=== PATIENT | female | born 1985 | race Caucasian/White ===

== ENCOUNTER 2018-09-05 23:12 | Inpatient (IN) | payer BC ==
[2018-09-06 00:44] LABS: Hematocrit 35 % (35-47); Hemoglobin 11.8 g/dL (12.0-16.0); Mean Corpuscular HGB Conc 34 g/dL (31-36); Mean Corpuscular Hemoglobin 30 pg (27-31); Mean Corpuscular Volume 88 fL (80-97); Mean Platelet Volume 8.5 fL (7.4-10.4); Platelet Count 321 10^3/uL (150-450); Red Blood Count 3.96 10^6 /uL (3.70-4.87); Red Cell Distribution Width 14 % (10.5-15); White Blood Count 15.8 10^3/uL (3.5-10.8)
[2018-09-06 01:16] LABS: ABS Basophils 0.1 10^3/ul (0-0.2); ABS Eosinophils 0.1 10^3/ul (0-0.6); ABS Lymphocytes 3.2 10^3/ul (1.0-4.8); ABS Monocytes 1.4 10^3/ul (0-0.8); ABS Neutrophils 10.9 10^3/ul (1.5-7.7); Eosinophil % 0.8 %; Lymphocyte % 20.4 %
[2018-09-06] MEDS ORDERED: Lactated Ringers 1000 ML Bag* 1,000 ML IV ONE (01:30)
[2018-09-06] MEDS ORDERED: Buffered Lidocaine 1% SYRIN* 1 ML/SYRINGE INTRADERM ONE (01:30)
[2018-09-06] MEDS ORDERED: Azithromycin TAB* 250 MG PO ONE (01:33)
--- NOTE | 2018-09-06 01:42 | HP ---
General Information - Reason for Visit Pt presents with a few gushes of clear fluid this evening. Other than a little back pain, no issues. Pt with di/di twin gestation, otherwise uncomplicated to date. U/S in office on 08/30 showed normal, concordant growth. Vtx/breech. - General Information Maternal Age: 33 Grav: 2 Para: 0 IEA: 1 Estimated Due Date: 10/31/18 Determined By: LMP Gestational Age in Weeks/Days: 32+1 wks Maternal Blood Type and Rh: O Positive - Results this Serology/RPR Result: Non-Reactive Rubella Result: Immune HBsAg Result: Negative HIV Result: Negative Past Medical History Delivery History: See Records Pertinent Past Medical History: Non-Contributory - h/o migraine GREGORY Pertinent Past Surgical History: See Records - laparoscopy with extensive lysis of adhesions - Antepartal Records Antepartal Records: Reviewed, Complicated by: - di/di twins Review of Systems Constitutional: Comfortable CV Complaint: No Respiratory: Shortness of Breath: No Gastrointestinal: No Nausea/Vomiting, Normal Bowel Movement Genitourinary: Leaking Fluid, No Dysuria, No Bleeding Musculoskeletal: No Complaint Neurological: No Headache Movement: Normal - x2 Exam Allergies/Adverse Reactions: Allergies Penicillins Allergy (Severe, Verified 09/05/18 23:57) Hives/Diff.Breathing/Itching VS normal, afebrile Lab Values - Entire Visit: Laboratory Tests 09/05/18 09/06/18 09/06/18 23:45 00:27 00:27 WBC 15.8 H RBC 3.96 Hgb 11.8 L Hct 35 MCV 88 MCH 30 MCHC 34 RDW 14 Plt Count 321 MPV 8.5 Neut % (Auto) 69.3 Lymph % (Auto) 20.4 [place] % (Auto) 8.9 Eos % (Auto) 0.8 Baso % (Auto) 0.6 Absolute Neuts (auto) 10.9 H Absolute Lymphs (auto) 3.2 Absolute Monos (auto) 1.4 H Absolute Eos (auto) 0.1 Absolute Basos (auto) 0.1 Absolute Nucleated RBC 0.0 Nucleated RBC % 0.0 Vag Amniotic Fld Detect Positive Blood Type O Positive Antibody Screen Negative - Measurements Height: 5 ft 6 in Weight: 218 lb 4.122 oz Weight in lbs: [phone] Body Mass Index (BMI): 35.2 Pre- Weight: 200 lb Weight Gained This : -90.389 lbs and -0.008 ozs - Exam Breast: Breast Exam Deferred Extremities: No Edema Heart: Normal Rhythm/Heart Sounds HEENT: No Significant Findings Lungs: Clear Bilaterally Rectal: Rectal Exam Deferred - Abdominal Exam Abdomen Exam: Non-Tender, Fundal Height Consistent with Dates - for twins - Ultrasound/Biophysical Profile Ultrasound Status: Bedside Exam Ultrasound Findings: vertex/breech. Normal FHR x2, fluid appears low in A, normal in B Targeted Exam Findings Presenting Part: Vertex - /Breech Membrane Status: Leaking Amniotic Fluid Evaluation: Positive ROM Plus EFM Findings - External Monitor Findings Baseline Heart Rate: 140 - 150 External Monitor Findings: Accelerations Present, No Pattern of Variable or Late Decelerations, Variability Moderate, Baseline Stable Contractions: Irregular Contraction Frequency: rare Assessment/Plan - Assessment 32+1 wks with di/di twins and PPROM, no evidence of significant labor or infection. Long discussion regarding mgmt including betamethasone and abx to prolong latency. GBS culture sent. We also discussed delivery plans since she had not discussed previously. Pt strongly desires a vaginal delivery, although she may choose to have a section rather than risk having both an and C/S. She understands that there is no way for us to ensure she will not require a C/ S even if she does delivery baby A. We will continue to discuss further. - Obstetrical Risk Factors Obstetrical Risk Factors: GBS Unknown, Risk Factors Comment: twins, PPROM - Plan Plan: Antibiotic Prophylaxis, Steroids Plan Comment: Admit until delivery. Plan to monitor babies Q shift. Delivery if signs of labor, infection, or concerns - Date/Time of Admission Date of Admission: 09/06/18 Time of Admission: 00:30
[2018-09-06] MEDS: ceFAZolin 1 GM ADVAN(*) 1 GM in NS 0.9% 50 ML* 50 ML IVPB SCH ×3 (02:53→18:45)
[2018-09-06] MEDS: Betamethasone INJ* 6 MG/ML 5 ML VIAL (30 MG) IM SCH (02:53)
--- NOTE | 2018-09-06 12:55 | PN ---
Progress Note - Progress Note Date of Service: 09/06/18 Note: 33 yo at 32 weeks with pprom and twins . discussed management. explained managemant of delivery willbe at discretion of MD electronics lead and that there are isssues as babies become more praemature with safety of vaginal . no fever . gfm. abdomen soft nontender no evidence of chorioamnionitis
[2018-09-07] MEDS: ceFAZolin 1 GM ADVAN(*) 1 GM in NS 0.9% 50 ML* 50 ML IVPB SCH ×3 (02:34→19:17)
[2018-09-07] MEDS: Betamethasone INJ* 6 MG/ML 5 ML VIAL (30 MG) IM SCH (02:38)
--- NOTE | 2018-09-07 10:01 | PN ---
Progress Note - Progress Note Date of Service: 09/07/18 SOAP: Subjective: [Twin at 32+ weeks with PPROM. Patient denies abdominal pain/ contractions, no vaginal bleeding.] Objective: [ Vital Signs Temp Pulse Resp BP Pulse Ox 98.9 F 83 16 124/71 99 09/07/18 03:05 09/07/18 03:05 09/07/18 03:05 09/07/18 03:05 09/06/18 08:00 NST Reactive] Assessment: Twin IUP PPROM at 32+ weeks EGA, no obvious s/sx of PTL or infectiojn] Plan: [Continue current care.]
[2018-09-08] MEDS: ceFAZolin 1 GM ADVAN(*) 1 GM in NS 0.9% 50 ML* 50 ML IVPB SCH (02:42)
[2018-09-08] MEDS: Prenatal Vitamin TAB PO SCH (10:17)
[2018-09-08] MEDS: Lactobacillus Acidophilus* 1 TAB PO SCH (10:17)
[2018-09-08] MEDS: Cephalexin CAP* 500 MG PO SCH ×3 (12:48→21:37)
--- NOTE | 2018-09-08 12:56 | PN ---
Progress Note - Progress Note Date of Service: 09/08/18 SOAP: Subjective: [Patient with a twin at 32+ weeks EGA with PPROM, admits to intermittent abdominal tightness and denies vaginal bleeding or abdominal pain.] Objective: [ Vital Signs Temp Pulse Resp BP Pulse Ox 98 F 76 18 131/78 99 09/08/18 08:12 09/08/18 08:12 09/08/18 08:12 09/08/18 08:12 09/06/18 08:00 NST this am Recative for baby A and B only 1 contraction noted over an hour period. Abdomen sof , NT, Gravid with palpable movement. ] Assessment: [Twin with PPROM at 32+ weeks with no obvious s/sx of infection, not in PTL, stable.] Plan: [Continue current care, Deliver for pertinent obstetrical indications.]
[2018-09-09] MEDS: Prenatal Vitamin TAB PO SCH (09:10)
[2018-09-09] MEDS: Lactobacillus Acidophilus* 1 TAB PO SCH (09:10)
[2018-09-09] MEDS: Cephalexin CAP* 500 MG PO SCH ×4 (09:10→20:59)
--- NOTE | 2018-09-09 14:03 | PN ---
Progress Note - Progress Note Date of Service: 09/09/18 Note: S : Pt twin gestation 32 weeks with Pprom O : VSS Afeb uterus: nontender no contractions abdomen: soft non tender Ext : nt A/P Pt 33 yo with twin gestation di/di with prom/ 32 weeks. Pt converted to oral abx today and will check CBC and US today. Plan on delivery by section at 34 weeks.
[2018-09-09 19:07] LABS: Hematocrit 34 % (35-47); Hemoglobin 11.7 g/dL (12.0-16.0); Mean Corpuscular HGB Conc 34 g/dL (31-36); Mean Corpuscular Hemoglobin 30 pg (27-31); Mean Corpuscular Volume 88 fL (80-97); Mean Platelet Volume 8.8 fL (7.4-10.4); Platelet Count 383 10^3/uL (150-450); Red Blood Count 3.92 10^6 /uL (3.70-4.87); Red Cell Distribution Width 13 % (10.5-15); White Blood Count 14.2 10^3/uL (3.5-10.8)
[2018-09-09 19:55] LABS: ABS Eosinophils 0.1 10^3/ul (0-0.6); ABS Lymphocytes 3.2 10^3/ul (1.0-4.8); ABS Monocytes 1.2 10^3/ul (0-0.8); ABS Neutrophils 9.5 10^3/ul (1.5-7.7); Eosinophil % 0.8 %; Nucleated Red Blood Cells % 0.1
[2018-09-10] MEDS: Prenatal Vitamin TAB PO SCH (08:04)
[2018-09-10] MEDS: Cephalexin CAP* 500 MG PO SCH ×4 (08:04→21:27)
[2018-09-10] MEDS: Lactobacillus Acidophilus* 1 TAB PO SCH (08:04)
--- NOTE | 2018-09-10 10:18 | PN ---
Progress Note - Progress Note Date of Service: 09/10/18 SOAP: Subjective: [Patient with twin at 32+weeks EGA and PPROM. She hasd no complaints denies abd pain/contractions or vaginal bleeding.] Objective: [ Vital Signs Temp Pulse Resp BP Pulse Ox 98.4 F 70 18 133/66 99 09/10/18 08:05 09/10/18 08:05 09/10/18 08:05 09/10/18 08:05 09/06/18 08:00 NST Cat 1, no contractions noted. Abdomen soft, not tender, gravid with palpable movement.] Assessment: [Twin with PPROM, stable with no s/sx of labor or infection.] Plan: [Continue current care.]
[2018-09-11] MEDS: Prenatal Vitamin TAB PO SCH (09:30)
[2018-09-11] MEDS: Lactobacillus Acidophilus* 1 TAB PO SCH (09:31)
[2018-09-11] MEDS: Cephalexin CAP* 500 MG PO SCH ×4 (09:31→21:24)
--- NOTE | 2018-09-11 14:54 | PN ---
Progress Note - Progress Note Date of Service: 09/11/18 SOAP: Subjective: Pt with di/di twin gestation, admitted on 09/06 with PPROM, now 32+6 wks EGA. No complaints today, active FMs x2. Still leaking clear fluid. No VB or noted ctx. Objective: VS normal, afebrile Abd soft, nontender, gravid NST (last night and this afternoon) reactive x2 no significant ctx seen. Last BPP 09/09 Assessment: 32+6 wks with di/di twins with PPROM, doing well, very reassuringe status. No evidence of infection or labor. Plan: Continue PO abx until 7 day course is completed. BID NST. Considering vtx/breech twins, pt is now planning C/S for delivery. Will likely schedule at 34+0 wks. Deliver sooner for signs of infection, labor, or NRFHT.
[2018-09-12] MEDS: Prenatal Vitamin TAB PO SCH (08:56)
[2018-09-12] MEDS: Lactobacillus Acidophilus* 1 TAB PO SCH (08:56)
[2018-09-12] MEDS: Cephalexin CAP* 500 MG PO SCH ×4 (08:56→21:35)
[2018-09-12] MEDS ORDERED: Zolpidem TAB* 5 MG PO PRN (09:31)
[2018-09-12] MEDS ORDERED: Dibucaine 1% 28.35 GM TUBE PR PRN (09:31)
[2018-09-12] MEDS ORDERED: Glycerin ADULT SUPP PR PRN (09:31)
[2018-09-12] MEDS ORDERED: oxyCODONE/Acetamin 5/325 MG* TAB PO PRN (09:31)
[2018-09-12] MEDS ORDERED: Acetaminophen TAB* 325 MG PO PRN (09:31)
[2018-09-12] MEDS ORDERED: Witch Hazel PAD* JAR TOPICAL PRN (09:31)
[2018-09-12] MEDS ORDERED: Ibuprofen TAB* 600 MG PO PRN (09:31)
[2018-09-12] MEDS ORDERED: Oxytocin in LR* 20 UNITS/1,000 ML BAG IVPB SCH (10:00)
[2018-09-12] MEDS ORDERED: Lactated Ringers 1000 ML Bag* 1,000 ML IV SCH (10:00)
--- NOTE | 2018-09-12 10:53 | PN ---
Progress Note - Progress Note Date of Service: 09/12/18 SOAP: Subjective: [pt sans complaints / no contractions.] Objective: [vss afebrile uterus nontender nst reactive x 2 ] Assessment: [33 weeks twins with pprom] Plan: [continue observation no evidence for chorioamnionitis]
[2018-09-12] MEDS: Simethicone TAB* 80 MG TAB.CHEW PO SCH ×2 (18:32→21:35)
[2018-09-13 07:26] LABS: Hematocrit 34 % (35-47); Hemoglobin 11.6 g/dL (12.0-16.0); Mean Corpuscular HGB Conc 34 g/dL (31-36); Mean Corpuscular Hemoglobin 30 pg (27-31); Mean Corpuscular Volume 88 fL (80-97); Mean Platelet Volume 8.8 fL (7.4-10.4); Platelet Count 346 10^3/uL (150-450); Red Blood Count 3.82 10^6 /uL (3.70-4.87); Red Cell Distribution Width 14 % (10.5-15); White Blood Count 14.4 10^3/uL (3.5-10.8)
[2018-09-13 07:30] LABS: ABS Basophils 0.1 10^3/ul (0-0.2); ABS Eosinophils 0.1 10^3/ul (0-0.6); ABS Lymphocytes 2.9 10^3/ul (1.0-4.8); ABS Monocytes 1.3 10^3/ul (0-0.8); Eosinophil % 0.8 %; Lymphocyte % 20.3 %; Nucleated Red Blood Cells % 0.1
[2018-09-13] MEDS: Simethicone TAB* 80 MG TAB.CHEW PO SCH ×4 (08:25→21:06)
[2018-09-13] MEDS: Lactobacillus Acidophilus* 1 TAB PO SCH (08:41)
[2018-09-13] MEDS: Cephalexin CAP* 500 MG PO SCH ×4 (08:41→21:06)
[2018-09-13] MEDS: Prenatal Vitamin TAB PO SCH (08:41)
--- NOTE | 2018-09-13 14:25 | PN ---
Progress Note - Progress Note Date of Service: 09/13/18 Note: S: Pt feels tired today as she has not been sleeping well. Says she had a little cramping overnight but doesn't think it is anything. No bleeding. + continued loss of clear fluid. Good movement. No fever/chills AVSS though BPs have been in the borderline to mildly elevated range the past 4- 5 days. Gen: NAD Abd: soft, nontender, gravid Ext: no edema, no calf tenderness NST: reactive. No contractions [id number] @33.1wks with di/di twins, PPROM 8 days ago s/p abx. GHTN. Plans for PCS next week. No e/o infection or labor.
[2018-09-14] MEDS: Prenatal Vitamin TAB PO SCH (09:12)
[2018-09-14] MEDS: Cephalexin CAP* 500 MG PO SCH ×4 (09:12→22:34)
[2018-09-14] MEDS: Lactobacillus Acidophilus* 1 TAB PO SCH (18:45)
[2018-09-14] MEDS: Simethicone TAB* 80 MG TAB.CHEW PO SCH (22:34)
--- NOTE | 2018-09-15 03:14 | PN ---
Progress Note - Progress Note Date of Service: 09/14/18 Note: SOAP: Subjective: Pt with di/di twin gestation, admitted on 09/06 with PPROM, now 33+2 wks EGA. No complaints today, active FMs x2. Still leaking clear fluid. No VB or noted ctx. Objective: VS normal, afebrile Abd soft, nontender, gravid NST (last night and this afternoon) reactive x2 no significant ctx seen. Assessment: 33+2 wks with di/di twins with PPROM, doing well, very reassuring status. No evidence of infection or labor. Plan: Discontinue Abx now Continue BID NST. Considering vtx/breech twins, pt is now planning C/S for delivery. Scheduled for 09/19. Deliver sooner for signs of infection, labor, or NRFHT.
[2018-09-15] MEDS: Simethicone TAB* 80 MG TAB.CHEW PO SCH ×4 (07:37→18:45)
[2018-09-15] MEDS: Prenatal Vitamin TAB PO SCH (08:37)
[2018-09-15] MEDS: Lactobacillus Acidophilus* 1 TAB PO SCH (08:37)
--- NOTE | 2018-09-15 12:11 | PN ---
Progress Note - Progress Note Date of Service: 09/15/18 Note: SOAP: Subjective: Pt with di/di twin gestation, admitted on 09/06 with PPROM, now 33+3 wks EGA. No complaints today, active FMs x2. Still leaking clear fluid. No VB or noted ctx. Happy she was able to get outside yesterday. Objective: VS normal, afebrile Abd soft, nontender, gravid NST (last night and this afternoon) reactive x2 no significant ctx seen. Assessment: 33+3 wks with di/di twins with PPROM, doing well, very reassuring status. No evidence of infection or labor. Plan: Continue BID NST. Pt is planning C/S for delivery. Scheduled for 09/19. Deliver sooner for signs of infection, labor, or NRFHT.
[2018-09-16] MEDS: Simethicone TAB* 80 MG TAB.CHEW PO SCH (07:45)
[2018-09-16] MEDS: Lactobacillus Acidophilus* 1 TAB PO SCH (08:49)
[2018-09-16] MEDS: Prenatal Vitamin TAB PO SCH (08:49)
--- NOTE | 2018-09-16 10:33 | PN ---
Progress Note - Progress Note Date of Service: 09/16/18 SOAP: Subjective: [patient sans complaints, gfm x2] Objective: [vss afebrile nst reactive x 2 no contractions on toco abdomen soft nontender extremities nontender] Assessment: [33 + 4 weeks with twins pprom stable ] Plan: [elective on at 34 weeks]
--- NOTE | 2018-09-17 10:38 | PN ---
Progress Note - Progress Note Date of Service: 09/17/18 SOAP: Subjective: [Twin with PPROM, now at 33 5/7 weeks EGA. patient denies contractions/abdominal pain/ vaginal bleeding.] Objective: [ Vital Signs Temp Pulse Resp BP Pulse Ox 98.7 F 78 16 126/75 99 09/16/18 08:45 09/16/18 08:45 09/16/18 08:45 09/16/18 08:45 09/12/18 20:42 Abdomen soft NT, Gravid with movement. NST Reactive , no contractions.] Assessment: [PPROM of twin , no s/sx of preterrm labor or infection.] Plan: [Sceduled at 34 weeks, continue current.]
[2018-09-17 18:32] LABS: Hematocrit 34 % (35-47); Hemoglobin 11.5 g/dL (12.0-16.0); Mean Corpuscular HGB Conc 34 g/dL (31-36); Mean Corpuscular Hemoglobin 30 pg (27-31); Mean Corpuscular Volume 87 fL (80-97); Mean Platelet Volume 8.6 fL (7.4-10.4); Platelet Count 360 10^3/uL (150-450); Red Blood Count 3.88 10^6 /uL (3.70-4.87); Red Cell Distribution Width 14 % (10.5-15); White Blood Count 15.7 10^3/uL (3.5-10.8)
[2018-09-18] MEDS: Lactobacillus Acidophilus* 1 TAB PO SCH (08:49)
[2018-09-18] MEDS: Prenatal Vitamin TAB PO SCH (08:50)
--- NOTE | 2018-09-18 12:01 | PN ---
Progress Note - Progress Note Date of Service: 09/18/18 SOAP: Subjective: [pt sans complaints / gfm x2 ] Objective: [vss afebrile abdomen notender extr- notender. NST reactive X2] Assessment: [33weeks 6 days PPROM twins stable] Plan: [ section in the am]
[2018-09-18] MEDS ORDERED: Buffered Lidocaine 1% SYRIN* 1 ML/SYRINGE INTRADERM ONE (15:38)
[2018-09-19] MEDS ORDERED: Sodium Citrate/Citric Acid* 15 ML UDC PO ONE (06:00)
[2018-09-19] MEDS ORDERED: Lactated Ringers 1000 ML Bag* 1,000 ML IV SCH (06:00)
[2018-09-19] MEDS ORDERED: Acetaminophen TAB* 325 MG PO ONE (06:00)
[2018-09-19] MEDS ORDERED: Famotidine IV* 10 MG/ML 2 ML (20 mg) IV ONE (06:00)
[2018-09-19] MEDS ORDERED: ceFOXitin 2 GM IVPREMIX* 2 GM/50 ML BAG ONE (07:04)
[2018-09-19] MEDS ORDERED: Morphine PF AMP (0.5MG/ML)* 5 MG/10 ML AMP ONE (07:35)
[2018-09-19] MEDS ORDERED: Dexamethasone IV* 4 MG/ML 1 ML (4 MG) ONE (07:46)
[2018-09-19] MEDS ORDERED: Ondansetron INJ* 2 MG/ML VIAL ONE (07:46)
[2018-09-19] MEDS ORDERED: OXYTOCIN* 10 UNITS/ML 1 ML VIAL ONE (07:46)
[2018-09-19] MEDS ORDERED: Ketorolac INJ* 30 MG/ML 1 ML VIAL ONE (07:46)
[2018-09-19] MEDS ORDERED: Phenylephrine 40 MCG/ML SYRINGE ONE (08:53)
[2018-09-19] MEDS ORDERED: Naloxone* 0.4 MG/ML 1 ML VIAL IV PRN ×2 (08:56)
[2018-09-19] MEDS ORDERED: Ondansetron INJ* 2 MG/ML VIAL IV PRN (08:56)
[2018-09-19] MEDS ORDERED: Scopolamine 1.5 mg* PATCH TRANSDERM PRN (08:56)
[2018-09-19] MEDS ORDERED: diPHENhydraMINE IV* 50 MG/ML 1 ml VIAL (BENADRYL) IV PRN (08:56)
[2018-09-19] MEDS ORDERED: Nalbuphine* 10 MG/ML 1 ML VIAL IV PRN (08:56)
[2018-09-19] MEDS ORDERED: Acetaminophen TAB* 325 MG PO PRN (08:56)
[2018-09-19] MEDS ORDERED: fentaNYL* 50 MCG/ML 2 ML VIAL (100 MCG VIAL) IV PRN (08:56)
[2018-09-19] MEDS ORDERED: HYDROcodone/ACETAMIN 5-325 MG* 1 TAB PO PRN ×2 (08:56)
[2018-09-19] MEDS ORDERED: PROCHLORPERAZINE INJ 5 MG/ML 2 ML VIAL IV PRN (08:56)
[2018-09-19] MEDS ORDERED: DiMENhydriNATE IV* 50 MG/ML VIAL IV PUSH PRN (08:56)
[2018-09-19] MEDS: Prenatal Vitamin TAB PO SCH (12:07)
[2018-09-19] MEDS: Ferrous Gluconate TAB* 324 MG TAB PO SCH ×2 (13:09→17:37)
[2018-09-19] MEDS: Docusate CAP* 100 MG PO SCH ×6 (13:09→20:34)
[2018-09-19] MEDS: Simethicone TAB* 80 MG TAB.CHEW PO SCH ×8 (13:10→20:34)
--- NOTE | 2018-09-19 23:19 | OP ---
OPERATIVE NOTE: DATE OF OPERATION: 09/19/18 DATE OF : 85 SURGEON: Natividad Saeed MD TUBING TESTER: Rodger Waite MD ANESTHESIOLOGIST: Dr. Bonilla. ANESTHESIA: Spinal. PRE-OP DIAGNOSIS: Intrauterine twin , prolonged premature rupture of membranes, 34 weeks, vertex, transverse back-up. POST-OP DIAGNOSIS: Intrauterine twin , prolonged premature rupture of membranes, 34 weeks, vertex, transverse back-up. Delivered. OPERATIVE PROCEDURE: Primary low transverse section. ESTIMATED BLOOD LOSS: 600 cc. URINE OUTPUT: 400 cc of clear yellow urine. FLUIDS: 1900 cc of crystalloid. FINDINGS: Revealed first baby A vertex, Apgars 9 at 1 minute, 9 at 5 minutes. Weight was 5 pounds 5 ounces. Baby B, Apgars 8 at 1 minute, 9 at 5 minutes. Weight was 5 pounds 8 ounces. Both were male infants. Baby A, no nuchal cord. No meconium. Baby B, nuchal cord x2, tight. No meconium. Placentas x2, manually extracted. Three-vessel cord, normal appearance, intact. Normal appearing tubes and ovaries bilaterally. No evidence of adhesions or scaring. COMPLICATIONS: None apparent. DISPOSITION: Stable to recovery room. DESCRIPTION OF PROCEDURE: The patient was placed in dorsal high position. Anesthesia was tested to appropriate level. INCOMPLETE DICTATION. [id number]/[facility] #: [id number] MTDD
[2018-09-19] MEDS: Ibuprofen TAB* 600 MG PO PRN (23:49)
--- NOTE | 2018-09-20 00:09 | OP ---
OPERATIVE REPORT: ADDENDUM: DESCRIPTION OF PROCEDURE: The patient was placed in dorsal lithotomy position. The abdomen was prepped and draped in a sterile standard fashion. The patient was identified with universal protocol for correct procedure, position, and patient. An incision was made 2 fingerbreadths above the pubic symphysis with a scalpel and this was carried down through the fascia. The fascia was scored in the midline, extended laterally and superiorly using Pollard scissors, superiorly and inferiorly with blunt and sharp dissection. The peritoneum was then entered bluntly and extended bluntly. Bladder blade was inserted. Lower uterine segment was identified and Allis was used to tent up the lower uterine segment. This was carried down to membranes. The incision was extended laterally and superiorly using bandage scissors. Amniotomy was created with clear fluid. Baby A was found to be vertex, delivered. Cord was allowed to pulse for a minute and cord was clamped and cut, and baby A boy was handed off to the waiting irrigation specialist at that point. Delivery of twin B was carried out. The baby was found to be transverse back up and the right leg and then foot was grasped. The baby was brought down and then delivered osorio breech. The anterior posterior shoulder delivered. Head was noted to have a tight nuchal cord x2 and this was reduced and head was delivered. The cord was allowed to pulse. Baby was vigorous with cry and good color and good heart rate , and then the cord was then clamped and cut and the was handed off to waiting irrigation specialist. Appropriate cord blood was then obtained for both A and B. The placentas were then manually extracted and noted to be separate and intact. The uterus was exteriorized. The uterine cavity was explored and noted to be free of any membranes or placental tissue, and the uterine incision itself was reapproximated using 0 Vicryl x2, first layer running locked, second layer running imbricated. Both tubes and ovaries were noted to have a normal appearance. The uterus was then returned intraabdominally. Colic gutters were lavaged and the hysterotomy site was noted to be hemostatic. The peritoneum was then reapproximated using 3-0 Vicryl in a running fashion. The subfascial area was visualized and noted to be hemostatic with Bovie coagulation. The fascia itself was reapproximated using 0 Vicryl x2 in a running fashion. Subcu was lavaged, hemostasis assured. A subcuticular stitch was placed to reapproximate the Camper fascia using 2-0 Vicryl in an interrupted fashion. The skin was then reapproximated with 4-0 Monocryl in a subcuticular fashion. Mastisol and Steri- Strips were applied. All sponge, instrument, and blade counts were correct throughout the case. The patient tolerated the procedure well and went to recovery room in stable condition. [id number]/[facility] #: [id number] [facility] HOSPITALRosa Maria
[2018-09-20] MEDS: Prenatal Vitamin TAB PO SCH (08:28)
[2018-09-20] MEDS: Ibuprofen TAB* 600 MG PO PRN ×3 (08:28→21:04)
[2018-09-20] MEDS: Simethicone TAB* 80 MG TAB.CHEW PO SCH ×5 (08:28→21:38)
[2018-09-20] MEDS: Docusate CAP* 100 MG PO SCH ×4 (08:28→21:38)
[2018-09-20 08:53] LABS: Hematocrit 33 % (35-47); Mean Corpuscular HGB Conc 34 g/dL (31-36); Mean Corpuscular Hemoglobin 30 pg (27-31); Mean Corpuscular Volume 88 fL (80-97); Mean Platelet Volume 8.5 fL (7.4-10.4); Platelet Count 346 10^3/uL (150-450); Red Blood Count 3.69 10^6 /uL (3.70-4.87); Red Cell Distribution Width 14 % (10.5-15)
[2018-09-20 09:46] LABS: ABS Basophils 0.1 10^3/ul (0-0.2); ABS Eosinophils 0.1 10^3/ul (0-0.6); ABS Lymphocytes 3.1 10^3/ul (1.0-4.8); ABS Monocytes 1.4 10^3/ul (0-0.8); ABS Neutrophils 10.2 10^3/ul (1.5-7.7); Eosinophil % 0.8 %; Lymphocyte % 20.9 %; Nucleated Red Blood Cells % 0.1
[2018-09-21] MEDS: Ibuprofen TAB* 600 MG PO PRN ×4 (03:14→21:56)
[2018-09-21] MEDS: oxyCODONE/Acetamin 5/325 MG* TAB PO PRN ×2 (04:05→21:56)
[2018-09-21] MEDS: Simethicone TAB* 80 MG TAB.CHEW PO SCH ×6 (08:21→21:56)
[2018-09-21] MEDS: Docusate CAP* 100 MG PO SCH ×7 (08:21→21:56)
[2018-09-21] MEDS: Lactobacillus Acidophilus* 1 TAB PO SCH ×4 (08:22→09:44)
[2018-09-21] MEDS: Ferrous Gluconate TAB* 324 MG TAB PO SCH ×2 (08:23→08:24)
[2018-09-21] MEDS: Prenatal Vitamin TAB PO SCH ×2 (08:30→09:44)
[2018-09-21 15:36] VITALS: BP 137/78
[2018-09-22] MEDS: oxyCODONE/Acetamin 5/325 MG* TAB PO PRN (06:02)
[2018-09-22] MEDS: Ibuprofen TAB* 600 MG PO PRN ×2 (06:03→12:35)
[2018-09-22] MEDS ORDERED: Scopolamine PATCH Remove* 1 NOTE MISC PATCH OFF PRN (08:58)
[2018-09-22] MEDS: Simethicone TAB* 80 MG TAB.CHEW PO SCH ×2 (10:34→12:24)
[2018-09-22] MEDS: Lactobacillus Acidophilus* 1 TAB PO SCH (10:34)
[2018-09-22] MEDS: Prenatal Vitamin TAB PO SCH (12:24)
[2018-09-22] MEDS: Docusate CAP* 100 MG PO SCH (12:25)
--- NOTE | 2018-10-09 12:19 | DS ---
DISCHARGE SUMMARY: DATE OF ADMISSION: 09/06/18 DATE OF DISCHARGE: 09/22/18 HISTORY OF PRESENT ILLNESS: Patient is a 33-year-old 2, para 0, twin gestation, who came in with premature rupture of membranes. Patient presented on 09/06/18 with gushing of clear fluid. Patient had had a normal concordant growth, first baby had been vertex, second baby breech. The patient exhibited no signs of labor and was given a course of oral, then IV antibiotic, and a course of betamethasone to increase latency with plan of primary section given the second baby was breech, if it remained breech given prematurity. The patient, on 09/19/18, underwent a primary section at 34 weeks, first baby was vertex, second baby back-up transverse lie. The first baby was delivered vertex, Apgars 9 at 1 minute and 9 at 5 minutes. Weight was 5 pounds 5 ounces. Second baby was born, Apgars were 8 at 1 minute and 9 at 5 minutes. Weight was 5 pounds 8 ounces. First baby was female, second baby was male. Patient had an uncomplicated postoperative course and was discharged to home on postop day #3, was verbalizing understanding of discharge instructions. She will follow up in the office for incision check at 1 week and a full visit in 4 to 6 weeks. [id number]/[facility] #: [id number] JOI
--- NOTE | 2018-10-21 10:47 | DS ---
ADDENDUM TO DISCHARGE SUMMARY DATE OF ADMISSION: 09/06/2018 DATE OF DISCHARGE: 09/22/2018. DISPOSITION/CONDITION ON DISCHARGE: The patient was discharged to home on postop day three in stable condition and verbalized understanding of discharge instructions. [id number]/[facility] #: [id number]
== END 2018-09-22 13:25 | disposition home or self-care (01) | DRG 540 ==
LOC: MCHOBOUT 23:12 → MCHOB 09-06 00:19
PROVIDERS: ADMIT Obstetrics & Gynecology; ATTEND Obstetrics & Gynecology
PROC: 4A1HXCZ Monitoring of Products of Conception, Cardiac Rate, External Approach (ICD-10-PCS; 2018-09-19)
PROC: 10D00Z1 Extraction of Products of Conception, Low, Open Approach (ICD-10-PCS; principal; 2018-09-19 07:45)
DX: O42.113 Preterm premature rupture of membranes, onset of labor more than 24 hours following rupture, third trimester (principal); O60.14X0 Preterm labor third trimester with preterm delivery third trimester, not applicable or unspecified; O69.1XX1 Labor and delivery complicated by cord around neck, with compression, fetus 1; O13.4 Gestational [pregnancy-induced] hypertension without significant proteinuria, complicating childbirth; O30.043 Twin pregnancy, dichorionic/diamniotic, third trimester; O32.1XX1 Maternal care for breech presentation, fetus 1; O32.2XX1 Maternal care for transverse and oblique lie, fetus 1; O69.3XX1 Labor and delivery complicated by short cord, fetus 1; Z37.2 Twins, both liveborn; Z88.0 Allergy status to penicillin; Z3A.32 32 weeks gestation of pregnancy
CPT/HCPCS: 36415; 76815; 76819; 84112; 85025; 85027; 86850; 86900; 86901; 87070; A9270-GY; J0690; J0694; J0702; J1100; J1240; J1885; J2405; J2590